=== PATIENT | male | born 1960 | race Asian ===

== ENCOUNTER 2019-06-26 10:16 | Emergency (ER) | payer OTHER ==
[~2019-06-26] VITALS: Ht 175.3 cm; Wt 86.8 kg
[~2019-06-26 10:16] MED LIST: ACET500C5 PO; COLC0.6T6 PO; IBUP-1542 PO
[2019-06-26 10:24] VITALS: BP 131/84; PULSE 85; RESP 18; Ht 175.3 cm; Wt 86.8 kg
[2019-06-26] MEDS ORDERED: KETOROLAC 30 MG INJ IM STA (11:13)
--- NOTE | 2019-06-26 11:22 | ERD ---
ER Documentation Chief Complaint Chief Complaint left ankle pain x4 days, feels like gout HPI 59-year-old male presented to ED for left ankle swelling and pain x4 days. Patient denies any traumatic injury states that he just woke up slowly started worsening over last 4 days. Patient does have a history of gout and states it feels different than his last gout attack. The patient has past medical history of aortic valve replacement. Patient denies any allergies to medication and states he is currently taking Coumadin and medication for hypertension. Patient rates the pain 10 out of 10. Patient states he is taking his medication at home which has not helped. Patient states he cannot take ibuprofen because his doctor advised him not to. ROS All systems reviewed and are negative except as per history of present illness. Medications Home Meds Active Scripts Acetaminophen* (Tylophen*) 500 Mg Capsule, 2 CAP PO Q8H PRN for PAIN AND OR ELEVATED TEMP, #20 CAP Prov:SHABNAM MITCHELL PA-C 06/26/19 Colchicine* (Colcrys*) 0.6 Mg Tablet, 0.6 MG PO ONCE for 1 Day, TAB Prov:SHABNAM MITCHELL PA-C 06/26/19 Discontinued Scripts Colchicine* (Colcrys*) 0.6 Mg Tablet, 0.6 MG PO WITH MEALS for 1 Day, #2 TAB 1.2 mg PO x 1 0.6 PO 1 hr later Prov:SHABNAM MITCHELL PA-C 06/26/19 Allergies Allergies: Coded Allergies: No Known Allergy (Verified , 06/26/19) FmHx Family History: No diabetes, No coronary disease, No other Physical Exam Vitals Vital Signs Date Temp Pulse Resp B/P (MAP) Pulse Ox O2 O2 Flow FiO2 Time Delivery Rate 06/26/19 99.2 85 18 131/84 97 10:24 (100) Physical Exam GENERAL: Moderate distress CHEST: Clear to auscultation bilaterally. There are no rales, wheezes or rhonchi. HEART: Regular rate and rhythm. No murmurs, clicks, rubs or gallops. EXTREMITIES: Unilateral swelling to the left ankle patient has good pedal pulses the skin is pink warm and dry the patient has pain to palpation with passive movement. SKIN: There is no apparent rash or petechiae. The skin is warm and dry. Results 24 hrs Current Medications Medications Dose Sig/Jus Start Time Status Last (Trade) Ordered Route PRN Stop Time Admin Dose Reason Admin Ketorolac 30 mg ONCE STAT 06/26/19 DC 06/26/19 Tromethamine IM 11:13 11:24 (Toradol) 06/26/19 11:18 Colchicine 1.2 mg ONCE ONCE 06/26/19 DC 06/26/19 (Colchicine) PO 12:30 13:03 06/26/19 12:31 Procedures/MDM ED course: The patient was stable throughout the ED course. The patient and/or family informed of laboratory and diagnostic imaging results throughout the ED course. Diagnostic imaging: Read by radiologist Dr. Garber PROCEDURE: XR Chest. CLINICAL INDICATION: Cough TECHNIQUE: Frontal chest x-ray was obtained. COMPARISON: Chest x-ray April 27, 2009 FINDINGS: The patient is post mitral valve replacement. Heart is not enlarged. There is calcified plaque in the wall of the aorta. No hilar mass is present. No alveolar infiltrate is visualized. There is a questionable subtle 1 cm noncalcified nodule in the right upper lobe. This may represent confluence of shadows. Linear scarring is seen at the left lung base. No effusion or pneumothorax is present. IMPRESSION: No pneumonia or failure. Linear scarring left lung base. Question right upper lobe nodule - CT is recommended for further evaluation. ROCEDURE: XR Left Ankle. CLINICAL INDICATION: Pain swelling TECHNIQUE: AP, oblique and lateral views of the left ankle were performed. COMPARISON: None. FINDINGS: There is normal mineralization and alignment. No acute fracture or osseous lesion is identified. The joints are normal. The soft tissues are unremarkable. IMPRESSION: Unremarkable left ankle. PROCEDURE: US Lower extremity Venous. CLINICAL INDICATION: leg edema TECHNIQUE: Multiple sonographic images of the left lower extremity deep venous system was obtained utilizing grayscale, color-flow, compressive sonography and doppler imaging with augmentation. The images were reviewed on a PACS workstation. COMPARISON: None. FINDINGS: There is normal compressibility and flow within the left common femoral, femoral, posterior tibial, peroneal and popliteal veins. RPTAT: AA IMPRESSION: No sonographic evidence for deep venous thrombosis Medications given in ER: Toradol colchicine Patient tolerated medication well with no adverse reactions. Patient reported improvement in pain. Medical decision makin-year-old male presenting to the ED for left ankle pain and swelling x4 days. Patient has a history of gout and states this feels similar to past gout attacks. Patient is presenting afebrile with vitals and stable limit. Patient states the pain is a 10 out of 10. Patient has good pedal pulses in the extre mity he has good motor function and no sensory deficits were noted on examination. The extremity is not hot to the touch there is no streaking or open lesions. The patient was given Toradol in the ED for pain. The initial working diagnosis was gout versus DVT versus cellulitis. Venous Doppler ultrasound showed no signs of DVT. X-ray of the left ankle showed no signs of osteomyelitis. The patient currently takes Coumadin and has been compliant with his medications. An incidental finding on chest x-ray showed a noncalcified nodule in the right lung. I brought this to the patient's attention and he believes he is been told this before he had aortic valve replacement several years ago and he mentioned that he had a spot on his lungs and his follow-up danyell ointments. Advised the patient that he needs to bring this to the attention of his primary care doctor for further work-up. The patient describes this event similar to his past gouty episodes he was given the first dose of colchicine in the ER. The patient tolerated the medication well with no side effects. Upon reevaluation the patient reports improvement in symptoms. At this time I have low suspicion for DVT, PE, NM, osteomyelitis, cellulitis. Advised the patient that if the symptoms worsen he should return to ED immediately. I advised the patient that he needs follow-up with a primary care provider within the next 1 to 2 days regarding this visit. All questions were answered upon discharge and the patient and family are agreement to the treatment plan. Prescription for home: Acetaminophen Cholchicine I have discussed with the patient proper use and common side effects to expert with the medication . I advised the patient/family to speak with the pharmacist dispensing the medication to be advised of any potential drug interactions with other medication or supplements they may be taking. Discharge: At this time, patient is stable for discharge and outpatient management. I have instructed the patient to follow-up with his\her primary care physician in 1 to 2 days. I have discussed with the patient the possibility of needing to see a specialist for further work-up and imaging studies if symptoms persist. I have instructed the patient to promptly return to the ER for any new or worsening symptoms including increased pain, fever, nausea, vomiting, weakness or LOC. The patient and\or family expressed understanding of and agreement with this plan. All questions were answered. Home care instructions were provided. Disclaimer: Inadvertent spelling and grammatical errors are likely due to EHR\dictation software use and do not reflect on the overall quality of patient care. Also, please note that the electronic time recorded on the note does not necessarily reflect the actual time of the patient encounter. Departure Diagnosis: Primary Impression: Gout attack Gout site: foot Gout etiology: unspecified cause Laterality: left Qualified Codes: M10.9 - Gout, unspecified Condition: SHABNAM Nguyen PA-C Jun 26, 2019 11:22
[2019-06-26] MEDS ORDERED: COLCHICINE 0.6 MG CAP PO ONE (12:30)
== END 2019-06-26 13:05 | disposition home or self-care (01) ==
LOC: FTE 10:16
DX: M10.9 Gout, unspecified (principal); I10 Essential (primary) hypertension; Z79.01 Long term (current) use of anticoagulants
CPT/HCPCS: 71045; 73610; 93971; 96372; 99285; J1885